=== PATIENT | female | born 1950 | race American Indian/Alaskan Native ===

== ENCOUNTER 2017-02-27 10:04 | Outpatient (CLI) | payer MEDICARE ==
--- NOTE | 2017-03-01 10:31 | Cat Scan Report ---
CT ORBITS/EAR/FOSSA WITHOUT CONTRAST INDICATION: Chronic otitis media. COMPARISON: None similar. FINDINGS: Noncontrast axial CT images through the temporal bones demonstrate non-pneumatized mastoids bilaterally. Left temporal bone air cells and left middle ear appear unremarkable, including the ossicles. However, incus on the right not well seen. Mild hazy soft tissue density also noted in the right epitympanum and posteriorly extending along the antrum. Few right temporal bone air cells also opacified. Scutum appears intact bilaterally. Mild bilateral ICA atherosclerotic calcifications. Leftward nasal septal deviation. Clear imaged anterior paranasal sinuses. Symmetric orbits/eye globes. Normal imaged intracranial appearance, bones and facial soft tissues. CONCLUSION: CT appearance most in keeping with chronic otitis media with poor visualization/suspected destruction of the right incus, as detailed above. Please correlate. Thank you for the opportunity to participate in this patient's care.
== END 2017-02-27 10:05 | disposition home or self-care (01) ==
LOC: CT 10:04
PROVIDERS: ATTEND Otolaryngology
DX: H66.91 Otitis media, unspecified, right ear (principal); J34.2 Deviated nasal septum; I25.10 Atherosclerotic heart disease of native coronary artery without angina pectoris
CPT/HCPCS: 70480